=== PATIENT | female | born 1950 | race Caucasian/White ===

== ENCOUNTER → 2020-06-30 11:19 | Outpatient (BNVA) | payer MEDICARE, OTHER, SELFPAY | PROVIDERS: Family Provider Family Medicine; PCP Family Medicine; Visit Provider Internal Medicine Rheumatology | DX: M35.3 Polymyalgia rheumatica (principal); Z79.899 Other long term (current) drug therapy; Z11.59 Encounter for screening for other viral diseases; Z11.1 Encounter for screening for respiratory tuberculosis; M18.0 Bilateral primary osteoarthritis of first carpometacarpal joints; Z78.0 Asymptomatic menopausal state; I48.91 Unspecified atrial fibrillation; M10.9 Gout, unspecified; Z79.52 Long term (current) use of systemic steroids | CPT/HCPCS: 36415; 80076; 82306; 82565; 85025; 85651; 86140; 86480; 86704; 86803; 87340; 99204 ==

== ENCOUNTER 2020-08-20 08:05 | Outpatient (CLI) | payer MEDICARE, BC, SELFPAY ==
--- NOTE | 2020-08-20 09:00 | XR_ITS ---
WS: [id number] Left hand, Clinical Data: inflammatory arthritis Comparison: None. Findings: No fractures or dislocations are seen. The soft tissues are unremarkable. There is minimal osteoarthr itic change at the base of the left first metacarpal. No periarticular calcifications or demineralization is seen. 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
--- NOTE | 2020-08-20 09:30 | XR_ITS ---
WS: [id number] Right hand, 3 views, 08/20/2020 Clinical Data: inflammatory arthritis Comparison: None. Findings: No fractures or dislocations are seen. The soft tissues are unremarkable. The joint space s are normal No periarticular demineralization is seen. XR/XR hand RT min 3V* [id number] Impression: Negative right hand.
--- NOTE | 2020-08-20 10:00 | XR_ITS ---
WS: [id number] Chest 2 views, 08/20/2020 Clinical Data: inflammatory arthritis Comparison: None. Findings: No nodules, masses or effusions are seen. The heart is normal. The pulmonary vascularity is not increased. No pneumonia or pneumothorax is seen. The thyroid shield obscured minimal detail over the lung apices on the PA view. XR/XR chest 2V* [id number] Impression: Negative chest.
--- NOTE | 2020-08-20 11:00 | XR_ITS ---
WS: [id number] Right foot, 3 views, 08/20/2020 Clinical Data: inflammatory arthritis Comparison: None Findings: There has been a partial bunionectomy of the medial aspect of the head of the right first metatarsal. There is cyst formation and osteoarthritic change at the base of the right first metatarsal as it ar ticulates with the first cuneiform. The remainder of the foot is unremarkable. There is no periarticu lar demineralization or calcifications. XR/XR foot RT min 3V* [id number] Impression: 1. Bunionectomy of the right first metatarsal. 2. Osteoarthritic change of the base of the right first metatarsal
--- NOTE | 2020-08-20 11:00 | XR_ITS ---
WS: [id number] Left foot, 3 views, 08/20/2020 Clinical Data: inflammatory arthritis Comparison: None. Findings: No fractures or dislocations are seen. No bone destruction or erosion is noted. The joint spaces and soft tissues are normal. There is no periarticular calcification or demineralization noted. There is a small plantar spur. XR/XR foot LT min 3V* [id number] Impression: Negative left foot.
--- NOTE | 2020-08-20 11:30 | XR_ITS ---
WS: [id number] Bone mineral density performed on a [employer], 08/20/2020 Clinical data: screening for osteoporosis Findings: The first 4 lumbar vertebral bodies demonstrated the bone mineral density of 1.623 g/cm2 for a young adult T score of 3.7. Measurement of the left hip reveals a bone mineral density of 1.174 g/cm2 with a young adult T score of 1.3. Measurement of the right hip reveals the bone mineral density of 1.199 g/cm2 for young adult T score of 1.5. XR/XR DEXA axial skeleton* [id number] Impression: Normal bone mineral density of the lumbar spine and both hips.
== END 2020-08-20 08:06 | disposition home or self-care (01) ==
LOC: RADWPI 08:13
PROVIDERS: PCP Family Medicine; Visit Provider Internal Medicine Rheumatology
DX: Z13.820 Encounter for screening for osteoporosis (principal); M35.3 Polymyalgia rheumatica; M19.90 Unspecified osteoarthritis, unspecified site; M19.042 Primary osteoarthritis, left hand; Z79.52 Long term (current) use of systemic steroids
CPT/HCPCS: 71046; 73130; 73630; 77080

== ENCOUNTER → 2020-08-23 10:37 | Outpatient (BNVA) | payer MEDICARE, BC, SELFPAY | PROVIDERS: PCP Family Medicine; Visit Provider Internal Medicine Rheumatology | DX: M18.0 Bilateral primary osteoarthritis of first carpometacarpal joints (principal); Z79.899 Other long term (current) drug therapy; I48.91 Unspecified atrial fibrillation; M70.61 Trochanteric bursitis, right hip; M70.62 Trochanteric bursitis, left hip; Y93.9 Activity, unspecified | CPT/HCPCS: 99214 ==

== ENCOUNTER → 2021-01-26 12:58 | Outpatient (BNVA) | payer MEDICARE, BC, SELFPAY | PROVIDERS: PCP Family Medicine; Visit Provider Internal Medicine Rheumatology | DX: M18.0 Bilateral primary osteoarthritis of first carpometacarpal joints (principal); Z79.899 Other long term (current) drug therapy; M70.61 Trochanteric bursitis, right hip; M70.62 Trochanteric bursitis, left hip; Y93.9 Activity, unspecified; I48.91 Unspecified atrial fibrillation | CPT/HCPCS: 99214 ==

== ENCOUNTER → 2021-05-12 13:55 | Outpatient (BNVA) | payer MEDICARE, BC, SELFPAY | PROVIDERS: PCP Family Medicine; Visit Provider Internal Medicine Rheumatology | DX: M35.3 Polymyalgia rheumatica (principal); M18.0 Bilateral primary osteoarthritis of first carpometacarpal joints; Z79.899 Other long term (current) drug therapy; I48.91 Unspecified atrial fibrillation; Z71.89 Other specified counseling | CPT/HCPCS: 99214 ==

== ENCOUNTER → 2021-08-09 13:52 | Outpatient (BNVA) | payer MEDICARE, BC, SELFPAY | PROVIDERS: PCP Family Medicine; Visit Provider Internal Medicine Rheumatology | DX: M35.3 Polymyalgia rheumatica (principal); M18.0 Bilateral primary osteoarthritis of first carpometacarpal joints; M25.50 Pain in unspecified joint; M70.61 Trochanteric bursitis, right hip; M70.62 Trochanteric bursitis, left hip; I48.91 Unspecified atrial fibrillation; Z79.899 Other long term (current) drug therapy; Z79.52 Long term (current) use of systemic steroids; Z71.89 Other specified counseling; Y93.9 Activity, unspecified | CPT/HCPCS: 99214 ==

== ENCOUNTER → 2022-02-02 13:58 | Outpatient (BNVA) | payer MEDICARE, BC, SELFPAY | PROVIDERS: PCP Family Medicine; Visit Provider Internal Medicine Rheumatology | DX: M35.3 Polymyalgia rheumatica (principal); Z79.899 Other long term (current) drug therapy; Z79.52 Long term (current) use of systemic steroids; E03.9 Hypothyroidism, unspecified; M18.0 Bilateral primary osteoarthritis of first carpometacarpal joints; Z78.0 Asymptomatic menopausal state; M70.61 Trochanteric bursitis, right hip; M70.62 Trochanteric bursitis, left hip; I48.91 Unspecified atrial fibrillation; Y93.9 Activity, unspecified | CPT/HCPCS: 84439; 84443; 99214 ==

== ENCOUNTER → 2022-05-29 12:51 | Outpatient (BNVA) | payer MEDICARE, BC, SELFPAY | PROVIDERS: PCP Family Medicine; Visit Provider Internal Medicine Rheumatology | DX: M35.3 Polymyalgia rheumatica (principal); Z79.899 Other long term (current) drug therapy; M18.0 Bilateral primary osteoarthritis of first carpometacarpal joints; Z71.89 Other specified counseling; M70.61 Trochanteric bursitis, right hip; M70.62 Trochanteric bursitis, left hip; Y93.9 Activity, unspecified; I48.91 Unspecified atrial fibrillation; Z79.01 Long term (current) use of anticoagulants | CPT/HCPCS: 99214 ==

== ENCOUNTER → 2022-09-05 13:57 | Outpatient (BNVA) | payer MEDICARE, BC, SELFPAY | PROVIDERS: PCP Family Medicine; Visit Provider Internal Medicine Rheumatology | DX: M35.3 Polymyalgia rheumatica (principal); Z79.899 Other long term (current) drug therapy; M70.61 Trochanteric bursitis, right hip; M70.62 Trochanteric bursitis, left hip; Y93.9 Activity, unspecified; I48.91 Unspecified atrial fibrillation; Z79.01 Long term (current) use of anticoagulants; M18.0 Bilateral primary osteoarthritis of first carpometacarpal joints; Z71.89 Other specified counseling | CPT/HCPCS: 99214 ==

== ENCOUNTER → 2023-01-30 13:59 | Outpatient (BNVA) | payer MEDICARE, BC, SELFPAY | PROVIDERS: PCP Family Medicine; Visit Provider Internal Medicine Rheumatology | DX: M35.3 Polymyalgia rheumatica (principal); M18.0 Bilateral primary osteoarthritis of first carpometacarpal joints; Z79.899 Other long term (current) drug therapy; Z71.89 Other specified counseling | CPT/HCPCS: 99214 ==

== ENCOUNTER → 2025-02-09 14:00 | Outpatient (BNVA) | payer MEDICARE, BC, SELFPAY | PROVIDERS: PCP Nurse Practitioner Family; Visit Provider Internal Medicine Rheumatology | DX: M35.3 Polymyalgia rheumatica (principal); M18.0 Bilateral primary osteoarthritis of first carpometacarpal joints; Z79.899 Other long term (current) drug therapy; Z71.89 Other specified counseling | CPT/HCPCS: 36415; 80076; 82565; 84550; 85025; 85651; 86140; 99214 ==

== ENCOUNTER → 2025-06-25 15:40 | Outpatient (BNVA) | payer MEDICARE, BC, SELFPAY | PROVIDERS: Visit Provider Family Medicine | DX: N39.0 Urinary tract infection, site not specified (principal); Z79.899 Other long term (current) drug therapy | CPT/HCPCS: 81000; 87086 ==

== ENCOUNTER → 2025-07-31 14:37 | Outpatient (BNVA) | payer MEDICARE, BC, SELFPAY | PROVIDERS: Visit Provider Family Medicine | DX: R30.0 Dysuria (principal) | CPT/HCPCS: 87086 ==

== ENCOUNTER → 2025-08-25 15:25 | Outpatient (BNVA) | payer MEDICARE, BC, SELFPAY | PROVIDERS: PCP Family Medicine; Visit Provider Family Medicine | DX: N39.0 Urinary tract infection, site not specified (principal) | CPT/HCPCS: 81000; 87086 ==